=== PATIENT | female | born 1940 | race Caucasian/White ===

== ENCOUNTER 2017-10-11 15:31 | Emergency (ER) | payer OTHER ==
[~2017-10-11] VITALS: Ht 154.9 cm; Wt 57.7 kg
[2017-10-11 15:50] VITALS: BP 119/61
== END 2017-10-11 16:53 | disposition left against medical advice (07) ==
LOC: ER 15:31
DX: M54.5 Low back pain (principal); Z53.21 Procedure and treatment not carried out due to patient leaving prior to being seen by health care provider

== ENCOUNTER 2019-01-13 11:27 | Emergency (ER) | payer MEDICARE, BC ==
[~2019-01-13] VITALS: Ht 154.9 cm; Wt 58.0 kg
[2019-01-13 12:21] LABS: BASOPHILS % (AUTO) 0.7 % (0-1); EOSINOPHILS # (AUTO) 0.2 X10'3 (0-0.9); EOSINOPHILS % (AUTO) 2.4 % (0-6); HEMATOCRIT 44.4 % (35.0-45.0); HEMOGLOBIN 15.2 g/dl (12.0-16.0); LYMPHOCYTES # (AUTO) 1.8 X10'3 (1.1-4.8); LYMPHOCYTES % (AUTO) 28.5 % (21-51); MEAN CORPUSCULAR HEMOGLOBIN 35.4 PG (27.0-31.0); MEAN CORPUSCULAR HGB CONC 34.2 g/dL (33.0-36.5); MEAN CORPUSCULAR VOLUME 103.5 FL (78-98); MEAN PLATELET VOLUME 6.8 FL (7.4-10.4); MONOCYTES # (AUTO) 0.4 X10'3 (0-0.9); MONOCYTES % (AUTO) 7.1 % (2-12); NEUTROPHILS # (AUTO) 3.9 X10'3 (1.8-7.7); NEUTROPHILS % (AUTO) 61.3 % (42-75); PLATELET COUNT 221 X10'3 (140-440); RED BLOOD COUNT 4.29 X10'6 (4.20-5.60); RED CELL DISTRIBUTION WIDTH 13.9 % (11.5-14.5); WHITE BLOOD COUNT 6.3 X10'3 (4.5-11.0)
[2019-01-13 12:36] LABS: ALANINE AMINOTRANSFERASE 28 U/L (12-78); ALBUMIN/GLOBULIN RATIO 1.2 (1.1-1.5); ALKALINE PHOSPHATASE 87 IU/L (46-116); ANION GAP 6 (8-16); ASPARTATE AMINO TRANSFERASE 25 U/L (10-37); BILIRUBIN,TOTAL 0.3 MG/DL (0.1-1.0); BLOOD UREA NITROGEN 16 MG/DL (7-18); BUN/CREATININE RATIO 19.5 (6.6-38.0); CALCIUM 9.1 MG/DL (8.5-10.1); CHLORIDE 101 MMOL/L (99-107); CREATININE 0.82 MG/DL (0.40-0.90); GLUCOSE 86 MG/DL (70-104); POTASSIUM 4.2 MMOL/L (3.5-5.1); SODIUM 138 MMOL/L (135-145); TOTAL CARBON DIOXIDE 30.8 MMOL/L (24-32); TOTAL PROTEIN 7.4 G/DL (6.4-8.2); eGFR 67 ML/MIN
[2019-01-13 12:48] LABS: MAGNESIUM 2.2 MG/DL (1.5-2.4)
[2019-01-13 15:28] VITALS: BP 211/87
== END 2019-01-13 15:33 | disposition home or self-care (01) ==
LOC: ER 11:28
DX: F41.9 Anxiety disorder, unspecified (principal); R94.6 Abnormal results of thyroid function studies; R42 Dizziness and giddiness; R06.02 Shortness of breath; E07.9 Disorder of thyroid, unspecified
CPT/HCPCS: 36415; 71045; 80053; 83735; 83880; 84439; 84443; 84484; 85025; 93005; 99284

== ENCOUNTER 2022-01-06 03:32 | Inpatient (IN) | payer MEDICARE, BC ==
[2022-01-06] VITALS (7 sets, daily range): BP systolic 138–156; BP diastolic 56–90
[~2022-01-06] VITALS: Ht 154.9 cm; Wt 56.8 kg
[2022-01-06] MEDS ORDERED: normal saline 1000ml 1,000 ML IV SCH (03:55)
[2022-01-06 04:37] LABS: BASOPHILS # (AUTO) 0.1 X10'3 (0-0.2); BASOPHILS % (AUTO) 1.1 % (0-1); EOSINOPHILS # (AUTO) 0.3 X10'3 (0-0.9); EOSINOPHILS % (AUTO) 3.7 % (0-6); HEMOGLOBIN 7.5 g/dl (12.0-16.0); LYMPHOCYTES # (AUTO) 1.8 X10'3 (1.1-4.8); LYMPHOCYTES % (AUTO) 22.9 % (21-51); MEAN CORPUSCULAR HGB CONC 34.5 g/dL (33.0-36.5); MEAN CORPUSCULAR VOLUME 95.7 FL (78-98); MEAN PLATELET VOLUME 5.8 FL (7.4-10.4); MONOCYTES # (AUTO) 0.7 X10'3 (0-0.9); MONOCYTES % (AUTO) 8.9 % (2-12); NEUTROPHILS # (AUTO) 4.9 X10'3 (1.8-7.7); NEUTROPHILS % (AUTO) 63.4 % (42-75); PLATELET COUNT 330 X10'3 (140-440); RED BLOOD COUNT 2.26 X10'6 (4.20-5.60); RED CELL DISTRIBUTION WIDTH 14.3 % (11.5-14.5); WHITE BLOOD COUNT 7.7 X10'3 (4.5-11.0)
[2022-01-06 04:43] LABS: HEMATOCRIT 21.6 % (35.0-45.0)
[2022-01-06 04:59] LABS: ALANINE AMINOTRANSFERASE 25 U/L (12-78); ALBUMIN 2.9 G/DL (3.4-5.0); ALBUMIN/GLOBULIN RATIO 0.9 (1.1-1.5); ALKALINE PHOSPHATASE 90 IU/L (46-116); ANION GAP 6 (8-16); ASPARTATE AMINO TRANSFERASE 19 U/L (10-37); BLOOD UREA NITROGEN 30 MG/DL (7-18); BUN/CREATININE RATIO 38.5 (6.6-38.0); CALCIUM 8.5 MG/DL (8.5-10.1); CHLORIDE 104 MMOL/L (99-107); CREATININE 0.78 MG/DL (0.40-0.90); GLUCOSE 110 MG/DL (70-104); SODIUM 139 MMOL/L (135-145); TOTAL CARBON DIOXIDE 29.2 MMOL/L (24-32); eGFR 71 ML/MIN
[2022-01-06 05:08] LABS: BILIRUBIN,TOTAL 0.1 MG/DL (0.1-1.0); LIPASE 323 U/L (73-393)
[2022-01-06 05:11] LABS: CLARITY,URINE CLEAR (Clear); COLOR,URINE YELLOW (Yellow); GLUCOSE, URINE NEGATIVE (Neg); KETONES,URINE NEGATIVE (Neg); LEUKOCYTE ESTERASE ,URINE SMALL (Neg); NITRITES, URINE NEGATIVE (Neg); OCCULT BLOOD,URINE NEGATIVE (Neg); PROTEIN,URINE NEGATIVE (Neg); UROBILINOGEN,URINE 0.2 E.U/dL (0.2-1.0)
[2022-01-06 05:16] LABS: UA COLLECTION TYPE CLN CATCH MIDSTREAM
[2022-01-06 05:18] LABS: RBC,URINE NONE SEEN /HPF (0-2)
[2022-01-06 05:19] LABS: BACTERIA,URINE NONE SEEN /HPF (Neg); MUCUS STRANDS NONE SEEN /LPF (Neg); RENAL CELLS, URINE FEW /HPF; SQUAMOUS EPITHELIAL CELL,UR FEW /LPF (FEW); WBC CLUMPS,URINE FEW /HPF (NEGATIVE)
--- NOTE | 2022-01-06 05:47 | NUR ---
MOST HX RECALLED PT POOR HISTORIAN
--- NOTE | 2022-01-06 06:45 | NUR ---
Up to void, steady gait.
[2022-01-06] MEDS ORDERED: AMLO2.5T2 PO (06:58)
[2022-01-06] MEDS ORDERED: levothyroxine PO (06:58)
[2022-01-06] MEDS ORDERED: [UNRECOGNIZED DRUG - OTHER] PO (06:58)
[2022-01-06] MEDS ORDERED: HYDROcodone/acetaminophen 5mg/325mg tablet PO PRN (10:05)
[2022-01-06] MEDS ORDERED: magnesium hydroxide 30ml (MOM) UD suspension PO PRN (10:05)
[2022-01-06] MEDS ORDERED: acetaminophen 325mg tablet PO PRN ×2 (10:05)
[2022-01-06] MEDS ORDERED: magnesium 2GM in 50ml NS 50 ML IV PRN (10:05)
[2022-01-06] MEDS ORDERED: magnesium 4gm in 100ml NS 100 ML IV PRN (10:05)
[2022-01-06] MEDS ORDERED: potassium CL 10mEq/100ml bag 100 ML IV PRN (10:05)
[2022-01-06] MEDS ORDERED: morphine 2 MG/ML inj. syringe IV PRN ×2 (10:05)
[2022-01-06] MEDS ORDERED: acetaminophen 650mg rectal suppository RC PRN (10:05)
[2022-01-06] MEDS ORDERED: HYDROcodone/acetaminophen 10/325mg tab PO PRN (10:05)
[2022-01-06] MEDS ORDERED: PERFLUTREN PROTEIN-A MICROSPHR (Optison) 0.22 MG/ML 3ML VIAL IV ONE (10:05)
[2022-01-06] MEDS ORDERED: bisacodyl 10mg suppository rectal RC PRN (10:05)
[2022-01-06] MEDS ORDERED: mag hydrox/Alum hydrox/simeth 30ml oral suspension PO PRN (10:05)
[2022-01-06] MEDS ORDERED: POTASSIUM BICARB 20meq eff tab 20 MEQ TABLET.EFF PO PRN ×2 (10:05)
[2022-01-06] MEDS ORDERED: magnesium Cl slow-release 64mg tablet PO PRN (10:05)
[2022-01-06] MEDS: pantoprazole 40MG/NS 100ML BAG 100 ML IV SCH ×2 (10:05→21:25)
[2022-01-06] MEDS ORDERED: ondansetron/PF 4mg/2ml inj IV PRN (10:05)
[2022-01-06 10:55] LABS: HEMOGLOBIN A1C 5.5 % (4.5-6.2)
[2022-01-06 10:56] LABS: HEMATOCRIT 23.5 % (35.0-45.0); HEMOGLOBIN 7.7 g/dl (12.0-16.0); MEAN CORPUSCULAR HEMOGLOBIN 31.2 PG (27.0-31.0); MEAN CORPUSCULAR HGB CONC 32.8 g/dL (33.0-36.5); MEAN CORPUSCULAR VOLUME 95.1 FL (78-98); MEAN PLATELET VOLUME 5.9 FL (7.4-10.4); PLATELET COUNT 353 X10'3 (140-440); RED BLOOD COUNT 2.48 X10'6 (4.20-5.60); RED CELL DISTRIBUTION WIDTH 14.6 % (11.5-14.5); WHITE BLOOD COUNT 5.9 X10'3 (4.5-11.0)
[2022-01-06] MEDS: normal saline 1000ml 1,000 ML IV SCH ×2 (11:09→23:25)
--- NOTE | 2022-01-06 11:17 | NUR ---
Lawson roberts in [facility] - 01/06/22 at 1127 by ROBERT Gerda: called at [phone]; pottasium 2.8.
[2022-01-06] MEDS ORDERED: LIDOcaine Viscous 15ml cup ONE (13:04)
[2022-01-06] MEDS ORDERED: MIDAZolam 1 MG/ML 5ML VIAL ONE (13:04)
[2022-01-06] MEDS ORDERED: fentaNYL/PF 50MCG/1 ML 2ML syringe ONE (13:04)
--- NOTE | 2022-01-06 13:10 | NUR ---
Transported to the GI Lab by LOLIS.
--- NOTE | 2022-01-06 14:50 | NUR ---
Pt returned from GI lab. Placed on a hospital bed. Restarted IVF. Awake and alert. Denies pain. Ambulated to the commode to void.
--- NOTE | 2022-01-06 15:02 | NUR ---
Paged Dr. Gbison regarding pt's diet.
[2022-01-06] MEDS ORDERED: ALBU17AE26 IH (15:26)
[2022-01-06] MEDS ORDERED: LEVO125T8 PO (15:26)
[2022-01-06] MEDS ORDERED: AMLO10TA13 PO (15:26)
[2022-01-06 16:41] LABS: HEMATOCRIT 22.9 % (35.0-45.0); HEMOGLOBIN 7.6 g/dl (12.0-16.0); MEAN CORPUSCULAR HEMOGLOBIN 31.7 PG (27.0-31.0); MEAN CORPUSCULAR HGB CONC 33.2 g/dL (33.0-36.5); MEAN CORPUSCULAR VOLUME 95.3 FL (78-98); MEAN PLATELET VOLUME 5.8 FL (7.4-10.4); PLATELET COUNT 350 X10'3 (140-440); RED BLOOD COUNT 2.41 X10'6 (4.20-5.60); RED CELL DISTRIBUTION WIDTH 14.5 % (11.5-14.5); WHITE BLOOD COUNT 6.7 X10'3 (4.5-11.0)
--- NOTE | 2022-01-06 17:07 | NUR ---
Report given to LOLIS Quan in PCU.
[2022-01-06] MEDS: K and/or MAG REPLACEMENT MC SCH (20:00)
[2022-01-06] MEDS: docusate sod 100mg capsule PO SCH (21:25)
[2022-01-06] MEDS ORDERED: amLODIPine 5mg tablet PO ONE (22:15)
[2022-01-06] MEDS ORDERED: CefTRIAXone/D5W-Rocephin 1gm 50 ML IV SCH ×2 (22:15→22:16)
[2022-01-06] MEDS ORDERED: albuterol 2.5 MG/3 ML nebule NEB PRN (22:20)
[2022-01-07 02:00] VITALS: BP 154/74
[2022-01-07 06:00] VITALS: BP 123/51
[2022-01-07 07:24] LABS: BASOPHILS # (AUTO) 0.1 X10'3 (0-0.2); BASOPHILS % (AUTO) 0.8 % (0-1); EOSINOPHILS # (AUTO) 0.3 X10'3 (0-0.9); EOSINOPHILS % (AUTO) 3.6 % (0-6); HEMATOCRIT 25.1 % (35.0-45.0); HEMOGLOBIN 8.1 g/dl (12.0-16.0); LYMPHOCYTES % (AUTO) 13.6 % (21-51); MEAN CORPUSCULAR HEMOGLOBIN 30.8 PG (27.0-31.0); MEAN CORPUSCULAR HGB CONC 32.4 g/dL (33.0-36.5); MEAN CORPUSCULAR VOLUME 95.1 FL (78-98); MEAN PLATELET VOLUME 5.9 FL (7.4-10.4); MONOCYTES # (AUTO) 0.5 X10'3 (0-0.9); MONOCYTES % (AUTO) 7.4 % (2-12); NEUTROPHILS # (AUTO) 5.4 X10'3 (1.8-7.7); NEUTROPHILS % (AUTO) 74.6 % (42-75); PLATELET COUNT 380 X10'3 (140-440); RED BLOOD COUNT 2.64 X10'6 (4.20-5.60); RED CELL DISTRIBUTION WIDTH 14.6 % (11.5-14.5); WHITE BLOOD COUNT 7.3 X10'3 (4.5-11.0)
[2022-01-07] MEDS: docusate sod 100mg capsule PO SCH ×2 (07:44→19:51)
[2022-01-07] MEDS: amLODIPine 5mg tablet PO SCH (07:45)
[2022-01-07] MEDS: thiamine 100mg tablet PO SCH ×2 (07:45→19:51)
[2022-01-07] MEDS: levoTHYROXINE 125mcg tablet PO SCH (07:45)
[2022-01-07] MEDS: folic acid 1mg tablet PO SCH (07:46)
[2022-01-07] MEDS: multivitamins, therapeutics tablet PO SCH (07:46)
[2022-01-07 07:53] LABS: ALANINE AMINOTRANSFERASE 22 U/L (12-78); ALBUMIN 3.1 G/DL (3.4-5.0); ALKALINE PHOSPHATASE 76 IU/L (46-116); ANION GAP 6 (8-16); ASPARTATE AMINO TRANSFERASE 19 U/L (10-37); BILIRUBIN,TOTAL 0.2 MG/DL (0.1-1.0); BLOOD UREA NITROGEN 11 MG/DL (7-18); BUN/CREATININE RATIO 18.3 (6.6-38.0); CALCIUM 8.4 MG/DL (8.5-10.1); CHLORIDE 106 MMOL/L (99-107); CHOL/HDL RATIO 1.9 (0.00-4.99); CHOLESTEROL 135 MG/DL (0-200); GLUCOSE 114 MG/DL (70-104); HDL CHOLESTEROL 72 MG/DL (35-60); LDL CHOLESTEROL 51 MG/DL (50-100); PHOSPHORUS 2.8 MG/DL (2.3-4.5); POTASSIUM 3.9 MMOL/L (3.5-5.1); SODIUM 141 MMOL/L (135-145); TOTAL CARBON DIOXIDE 29.1 MMOL/L (24-32); TOTAL PROTEIN 6.2 G/DL (6.4-8.2); TRIGLYCERIDES 71 MG/DL (20-135); eGFR > 90 ML/MIN
[2022-01-07] MEDS: K and/or MAG REPLACEMENT MC SCH ×2 (08:00→19:39)
[2022-01-07] MEDS ORDERED: [UNRECOGNIZED DRUG - OTHER] PO SCH (08:00)
[2022-01-07] MEDS: pantoprazole 40MG/NS 100ML BAG 100 ML IV SCH (08:00)
[2022-01-07 11:00] VITALS: BP 125/56
[2022-01-07] MEDS: normal saline 1000ml 1,000 ML IV SCH (11:20)
[2022-01-07 15:00] VITALS: BP 131/47
[2022-01-07 18:00] VITALS: BP 94/49
--- NOTE | 2022-01-07 18:25 | NUR ---
Problems reprioritized. Patient report given, questions answered & plan of care reviewed with Alma DANIELLE.
[2022-01-07] MEDS: pantoprazole 40mg Tablet.DR PO SCH (19:51)
[2022-01-08 02:00] VITALS: BP 131/46
[2022-01-08] MEDS: normal saline 1000ml 1,000 ML IV SCH (02:05)
[2022-01-08 05:52] LABS: BASOPHILS # (AUTO) 0.1 X10'3 (0-0.2); BASOPHILS % (AUTO) 0.9 % (0-1); EOSINOPHILS # (AUTO) 0.2 X10'3 (0-0.9); HEMATOCRIT 23.3 % (35.0-45.0); HEMOGLOBIN 7.6 g/dl (12.0-16.0); LYMPHOCYTES # (AUTO) 1.3 X10'3 (1.1-4.8); LYMPHOCYTES % (AUTO) 20.2 % (21-51); MEAN CORPUSCULAR HEMOGLOBIN 30.8 PG (27.0-31.0); MEAN CORPUSCULAR HGB CONC 32.8 g/dL (33.0-36.5); MEAN CORPUSCULAR VOLUME 93.8 FL (78-98); MEAN PLATELET VOLUME 5.9 FL (7.4-10.4); MONOCYTES # (AUTO) 0.6 X10'3 (0-0.9); MONOCYTES % (AUTO) 8.4 % (2-12); NEUTROPHILS # (AUTO) 4.5 X10'3 (1.8-7.7); NEUTROPHILS % (AUTO) 67.5 % (42-75); PLATELET COUNT 344 X10'3 (140-440); RED BLOOD COUNT 2.49 X10'6 (4.20-5.60); RED CELL DISTRIBUTION WIDTH 15.2 % (11.5-14.5); WHITE BLOOD COUNT 6.7 X10'3 (4.5-11.0)
[2022-01-08 06:12] LABS: ALANINE AMINOTRANSFERASE 19 U/L (12-78); ALBUMIN 2.8 G/DL (3.4-5.0); ALBUMIN/GLOBULIN RATIO 0.9 (1.1-1.5); ANION GAP 6 (8-16); ASPARTATE AMINO TRANSFERASE 18 U/L (10-37); BILIRUBIN,TOTAL 0.2 MG/DL (0.1-1.0); BLOOD UREA NITROGEN 9 MG/DL (7-18); BUN/CREATININE RATIO 14.8 (6.6-38.0); CALCIUM 8.1 MG/DL (8.5-10.1); CHLORIDE 107 MMOL/L (99-107); CREATININE 0.61 MG/DL (0.40-0.90); GLUCOSE 92 MG/DL (70-104); PHOSPHORUS 3.4 MG/DL (2.3-4.5); SODIUM 140 MMOL/L (135-145); TOTAL CARBON DIOXIDE 27.5 MMOL/L (24-32); TOTAL PROTEIN 5.8 G/DL (6.4-8.2); eGFR > 90 ML/MIN
[2022-01-08 06:22] LABS: ALKALINE PHOSPHATASE 71 IU/L (46-116)
--- NOTE | 2022-01-08 06:58 | NUR ---
Patient in room PCU 3028. I have received report from Alma DANIELLE and had the opportunity to ask questions and assume patient care.
[2022-01-08 07:00] VITALS: BP 136/51
[2022-01-08] MEDS ORDERED: FOLI0.4T6 PO (08:38)
[2022-01-08] MEDS ORDERED: LACT1CAP26 PO (08:38)
[2022-01-08] MEDS ORDERED: MULT-25 PO (08:38)
[2022-01-08] MEDS ORDERED: THIA50TA10 PO (08:38)
[2022-01-08] MEDS ORDERED: FERR325T28 PO (08:38)
[2022-01-08] MEDS ORDERED: PANT40TA54 PO (08:38)
[2022-01-08] MEDS ORDERED: ASCO500C18 PO (08:38)
[2022-01-08] MEDS ORDERED: CEFD300C3 PO (08:38)
[2022-01-08] MEDS ORDERED: MAGN400O6 PO (08:38)
[2022-01-08 08:55] VITALS: BP_SYST 136
[2022-01-08] MEDS: amLODIPine 5mg tablet PO SCH (08:55)
[2022-01-08] MEDS: pantoprazole 40mg Tablet.DR PO SCH (08:56)
[2022-01-08] MEDS: levoTHYROXINE 125mcg tablet PO SCH (08:56)
[2022-01-08] MEDS: multivitamins, therapeutics tablet PO SCH (08:56)
[2022-01-08] MEDS: docusate sod 100mg capsule PO SCH (08:56)
[2022-01-08] MEDS: folic acid 1mg tablet PO SCH (08:56)
[2022-01-08] MEDS: thiamine 100mg tablet PO SCH (08:58)
[2022-01-08 11:36] LABS: HEMATOCRIT 24.4 % (35.0-45.0); HEMOGLOBIN 8.1 g/dl (12.0-16.0); MEAN CORPUSCULAR HEMOGLOBIN 31.5 PG (27.0-31.0); MEAN CORPUSCULAR HGB CONC 33.2 g/dL (33.0-36.5); MEAN CORPUSCULAR VOLUME 94.9 FL (78-98); MEAN PLATELET VOLUME 5.8 FL (7.4-10.4); PLATELET COUNT 385 X10'3 (140-440); RED BLOOD COUNT 2.57 X10'6 (4.20-5.60)
--- NOTE | 2022-01-08 11:53 | NUR ---
Discharge instructions given with signature obtained, understanding verbalized. PIV discontinued intact, tolerated well. Condition stable per MD. Patient taken to private vehicle via w/c with personal belongings.
== END 2022-01-08 12:16 | disposition home or self-care (01) | DRG 377 ==
LOC: ER 03:32 → ED HOLD 10:06 → PCU 3S 17:40
PROVIDERS: ADMIT Family Medicine; ATTEND Family Medicine
PROC: 0DB68ZX Excision of Stomach, Via Natural or Artificial Opening Endoscopic, Diagnostic (ICD-10-PCS; principal; 2022-01-06)
DX: K25.4 Chronic or unspecified gastric ulcer with hemorrhage (principal); G93.41 Metabolic encephalopathy; N39.0 Urinary tract infection, site not specified; K29.71 Gastritis, unspecified, with bleeding; Z60.2 Problems related to living alone; Z20.822 Contact with and (suspected) exposure to COVID-19; R55 Syncope and collapse; K44.9 Diaphragmatic hernia without obstruction or gangrene; E03.9 Hypothyroidism, unspecified; F17.210 Nicotine dependence, cigarettes, uncomplicated; I10 Essential (primary) hypertension; J45.909 Unspecified asthma, uncomplicated; K21.00 Gastro-esophageal reflux disease with esophagitis, without bleeding; Z79.890 Hormone replacement therapy; Z71.6 Tobacco abuse counseling; Z72.89 Other problems related to lifestyle; D50.0 Iron deficiency anemia secondary to blood loss (chronic)
CPT/HCPCS: 36415; 43239; 70450; 71045; 80053; 80061; 81001; 82607; 83036; 83605; 83690; 83735; 83880; 84100; 84443; 84484; 85025; 85027; 86885; 86900; 86901; 86920; 87081; 87088; 87811; 88305; 88342; 93005; 93306; 96360; 97161; 97530; 99152; 99285; A4620; A6258; C9113; G0378; J0696; J2250; J3010; J7030

== ENCOUNTER 2022-07-28 18:56 | Emergency (ER) | payer MEDICARE, BC ==
[~2022-07-28 18:56] MED LIST: ALBU17AE26 IH; AMLO10TA13 PO; ASCO500C18 PO; LACT1CAP26 PO; LEVO125T8 PO; MAGN400O6 PO; MULT-25 PO; PANT40TA54 PO; THIA50TA10 PO; [UNRECOGNIZED DRUG - OTHER] PO
[2022-07-28 19:24] LABS: BASOPHILS # (AUTO) 0.1 X10'3 (0-0.2); BASOPHILS % (AUTO) 1.1 % (0-1); EOSINOPHILS # (AUTO) 0.5 X10'3 (0-0.9); EOSINOPHILS % (AUTO) 8.2 % (0-6); HEMATOCRIT 30.5 % (35.0-45.0); HEMOGLOBIN 9.8 g/dl (12.0-16.0); LYMPHOCYTES # (AUTO) 2.1 X10'3 (1.1-4.8); LYMPHOCYTES % (AUTO) 34.2 % (21-51); MEAN CORPUSCULAR HEMOGLOBIN 27.2 PG (27.0-31.0); MEAN PLATELET VOLUME 6.1 FL (7.4-10.4); MONOCYTES # (AUTO) 0.7 X10'3 (0-0.9); MONOCYTES % (AUTO) 11.9 % (2-12); NEUTROPHILS # (AUTO) 2.7 X10'3 (1.8-7.7); NEUTROPHILS % (AUTO) 44.6 % (42-75); PLATELET COUNT 204 X10'3 (140-440); RED BLOOD COUNT 3.59 X10'6 (4.20-5.60); RED CELL DISTRIBUTION WIDTH 15.7 % (11.5-14.5); WHITE BLOOD COUNT 6.1 X10'3 (4.5-11.0)
[2022-07-28 19:40] LABS: ALANINE AMINOTRANSFERASE 17 U/L (12-78); ALBUMIN 3.4 G/DL (3.4-5.0); ALBUMIN/GLOBULIN RATIO 1.1 (1.1-1.5); ALKALINE PHOSPHATASE 84 IU/L (46-116); ANION GAP 9 (8-16); ASPARTATE AMINO TRANSFERASE 13 U/L (10-37); BLOOD UREA NITROGEN 23 MG/DL (7-18); BUN/CREATININE RATIO 27.4 (10.0-20.0); CALCIUM 8.9 MG/DL (8.5-10.1); CHLORIDE 106 MMOL/L (99-107); CREATININE 0.84 MG/DL (0.40-0.90); GLUCOSE 95 MG/DL (70-104); POTASSIUM 4.1 MMOL/L (3.5-5.1); SODIUM 143 MMOL/L (135-145); TOTAL PROTEIN 6.6 G/DL (6.4-8.2); eGFR 65 ML/MIN
[2022-07-28 19:51] LABS: BILIRUBIN,TOTAL 0.1 MG/DL (0.1-1.0)
[2022-07-28 20:45] VITALS: BP 139/57
== END 2022-07-28 21:10 | disposition home or self-care (01) ==
LOC: ER 18:56
DX: R53.1 Weakness (principal); E03.9 Hypothyroidism, unspecified; Z79.899 Other long term (current) drug therapy
CPT/HCPCS: 36415; 71045; 80053; 83880; 84484; 85025; 93005; 99285

== ENCOUNTER 2024-02-25 18:31 | Inpatient (IN) | payer MEDICARE, BC ==
[~2024-02-25] VITALS: Ht 154.9 cm; Wt 50.0 kg
[2024-02-25] MEDS: ipratropium/albuterol 3ml nebule NEB ONE (19:04)
[2024-02-25 19:05] VITALS: PULSE 61; PULSE 65; RESP 11; RESP 12; O2SAT 94; O2SAT 98
[2024-02-25 19:11] LABS: BASOPHILS # (AUTO) 0.1 X10'3 (0-0.2); BASOPHILS % (AUTO) 1.3 % (0-1); EOSINOPHILS # (AUTO) 0.1 X10'3 (0-0.9); EOSINOPHILS % (AUTO) 2.8 % (0-6); HEMATOCRIT 36.4 % (35.0-45.0); HEMOGLOBIN 12.4 g/dl (12.0-16.0); LYMPHOCYTES # (AUTO) 1.2 X10'3 (1.1-4.8); LYMPHOCYTES % (AUTO) 27.1 % (21-51); MEAN CORPUSCULAR HEMOGLOBIN 33.7 PG (27.0-31.0); MEAN PLATELET VOLUME 6.7 FL (7.4-10.4); MONOCYTES # (AUTO) 0.6 X10'3 (0-0.9); MONOCYTES % (AUTO) 13.9 % (2-12); NEUTROPHILS # (AUTO) 2.5 X10'3 (1.8-7.7); NEUTROPHILS % (AUTO) 54.9 % (42-75); PLATELET COUNT 166 X10'3 (140-440); RED BLOOD COUNT 3.68 X10'6 (4.20-5.60); RED CELL DISTRIBUTION WIDTH 13.2 % (11.5-14.5); WHITE BLOOD COUNT 4.5 X10'3 (4.5-11.0)
[2024-02-25 19:20] LABS: APTT 29 SECONDS (22-32); INR 1.1 INR; PROTHROMBIN TIME 11.6 SECONDS (9.0-12.0)
[2024-02-25] MEDS: methylPREDNISolone sod succ 125mg/2ml vial IV ONE (19:24)
[2024-02-25] MEDS: normal saline 1000ML IV soln IVB ONE (19:24)
[2024-02-25 19:30] LABS: ALBUMIN 3.7 G/DL (3.4-5.0); ANION GAP 5 (8-16); BLOOD UREA NITROGEN 20 MG/DL (7-18); BUN/CREATININE RATIO 21.3 (10.0-20.0); CALCIUM 8.6 MG/DL (8.5-10.1); CHLORIDE 100 MMOL/L (99-107); CREATININE 0.94 MG/DL (0.40-0.90); GLUCOSE 125 MG/DL (70-104); POTASSIUM 3.8 MMOL/L (3.5-5.1); PRO BRAIN NATRIURETIC PEPTIDE 355 PG/ML (0-450); SODIUM 135 MMOL/L (135-145); TOTAL CARBON DIOXIDE 30.5 MMOL/L (24-32); eCRCL 33 ML/MIN; eGFR 57 ML/MIN
[2024-02-25 20:09] LABS: ALANINE AMINOTRANSFERASE 17 U/L (12-78); ALBUMIN/GLOBULIN RATIO 1.3 (1.1-1.5); ALKALINE PHOSPHATASE 68 IU/L (46-116); ASPARTATE AMINO TRANSFERASE 18 U/L (10-37); BILIRUBIN,DIRECT 0.1 MG/DL (0-0.3); BILIRUBIN,TOTAL 0.3 MG/DL (0.1-1.0); TOTAL PROTEIN 6.6 G/DL (6.4-8.2)
[2024-02-25 22:00] LABS: BILIRUBIN,URINE NEGATIVE (Neg); CLARITY,URINE CLEAR (Clear); COLOR,URINE YELLOW (Yellow); GLUCOSE, URINE NEGATIVE (Neg); KETONES,URINE NEGATIVE (Neg); LEUKOCYTE ESTERASE ,URINE TRACE (Neg); NITRITES, URINE NEGATIVE (Neg); OCCULT BLOOD,URINE TRACE-INTACT (Neg); PROTEIN,URINE TRACE mg/dl (Neg); UROBILINOGEN,URINE 0.2 E.U/dL (0.2-1.0)
[2024-02-25 22:05] LABS: UA COLLECTION TYPE URINAL
[2024-02-25 22:06] LABS: BACTERIA,URINE 1+ /HPF (Neg); SQUAMOUS EPITHELIAL CELL,UR FEW /LPF (FEW)
[2024-02-25] MEDS ORDERED: mag hydrox/Alum hydrox/simeth 30ml oral suspension PO PRN (22:50)
[2024-02-25] MEDS ORDERED: acetaminophen 325mg tablet PO PRN (22:50)
[2024-02-25] MEDS ORDERED: magnesium sulf-water 2g/50mL 50 ML IV PRN (22:50)
[2024-02-25] MEDS ORDERED: magnesium sulf-water 4G/100mL 100 ML IV PRN (22:50)
[2024-02-25] MEDS ORDERED: magnesium hydroxide 30ml (MOM) UD suspension PO PRN (22:50)
[2024-02-25] MEDS ORDERED: magnesium Cl slow-release 64mg tablet PO PRN (22:50)
[2024-02-25] MEDS ORDERED: potassium Cl 40MEQ/1/2NS 520ml 520 ML IV PRN (22:50)
[2024-02-25] MEDS ORDERED: ondansetron/PF 4mg/2ml inj IV PRN (22:50)
[2024-02-25] MEDS ORDERED: potassium Cl 20 mEq SR tablet PO PRN ×2 (22:50)
[2024-02-25 23:07] LABS: HEMOGLOBIN A1C 5.4 % (4.5-6.2)
[2024-02-26] MEDS: normal saline 1000ml 1,000 ML IV SCH (00:31)
[2024-02-26] MEDS: CefTRIAXone/D5W-Rocephin 1gm 50 ML IV SCH (00:32)
[2024-02-26] MEDS ORDERED: albuterol 2.5 MG/3 ML nebule NEB PRN ×2 (02:20→07:55)
[2024-02-26] MEDS: K and/or MAG REPLACEMENT MC SCH (06:51)
[2024-02-26] MEDS: docusate sod 100mg capsule PO SCH (07:40)
[2024-02-26] MEDS: enoxaparin 40mg/0.4ml syringe SUBCUT SCH (07:43)
[2024-02-26] MEDS: guaiFENesin ER 600mg tablet PO SCH (07:48)
[2024-02-26] MEDS ORDERED: PANT-47 PO (07:51)
[2024-02-26] MEDS ORDERED: QUET25TA36 PO (07:52)
[2024-02-26] MEDS ORDERED: ESCI20TA39 PO (07:53)
[2024-02-26] MEDS ORDERED: ALEN70TA60 PO (07:54)
[2024-02-26] MEDS ORDERED: ipratropium/albuterol 3ml nebule NEB PRN (07:55)
[2024-02-26 08:28] LABS: BASOPHILS % (AUTO) 0.6 % (0-1); EOSINOPHILS % (AUTO) 0 % (0-6); HEMATOCRIT 40.9 % (35.0-45.0); HEMOGLOBIN 13.7 g/dl (12.0-16.0); LYMPHOCYTES # (AUTO) 0.6 X10'3 (1.1-4.8); LYMPHOCYTES % (AUTO) 12.7 % (21-51); MEAN CORPUSCULAR HGB CONC 33.4 g/dL (33.0-36.5); MEAN CORPUSCULAR VOLUME 98.9 FL (78-98); MEAN PLATELET VOLUME 6.8 FL (7.4-10.4); MONOCYTES # (AUTO) 0.3 X10'3 (0-0.9); MONOCYTES % (AUTO) 5.2 % (2-12); NEUTROPHILS # (AUTO) 4.1 X10'3 (1.8-7.7); NEUTROPHILS % (AUTO) 81.5 % (42-75); PLATELET COUNT 171 X10'3 (140-440); RED BLOOD COUNT 4.13 X10'6 (4.20-5.60); RED CELL DISTRIBUTION WIDTH 13.3 % (11.5-14.5)
[2024-02-26 09:33] LABS: ALANINE AMINOTRANSFERASE 16 U/L (12-78); ALBUMIN 3.2 G/DL (3.4-5.0); ALKALINE PHOSPHATASE 61 IU/L (46-116); ANION GAP 7 (8-16); ASPARTATE AMINO TRANSFERASE 20 U/L (10-37); BILIRUBIN,TOTAL 0.2 MG/DL (0.1-1.0); BLOOD UREA NITROGEN 19 MG/DL (7-18); BUN/CREATININE RATIO 23.8 (10.0-20.0); CALCIUM 8.2 MG/DL (8.5-10.1); CHLORIDE 106 MMOL/L (99-107); CHOL/HDL RATIO 2.4 (0.00-4.99); CHOLESTEROL 167 MG/DL (0-200); GLUCOSE 137 MG/DL (70-104); HDL CHOLESTEROL 71 MG/DL (35-60); LDL CHOLESTEROL 90 MG/DL (50-100); MAGNESIUM 1.9 MG/DL (1.5-2.4); SODIUM 140 MMOL/L (135-145); THYROID STIMULATING HORMONE 1.46 ulU/ml (0.34-4.50); TOTAL CARBON DIOXIDE 27.3 MMOL/L (24-32); TOTAL PROTEIN 6.5 G/DL (6.4-8.2); TRIGLYCERIDES 24 MG/DL (20-135); eCRCL 39 ML/MIN; eGFR 68 ML/MIN
[2024-02-26 10:00] LABS: POTASSIUM 4.5 MMOL/L (3.5-5.1)
[2024-02-26 11:15] VITALS: BP 114/72; PULSE 61; RESP 12; TEMP 98.2; O2SAT 95
[2024-02-26 12:12] VITALS: PULSE 60; RESP 20; O2SAT 94
[2024-02-26 18:00] VITALS: BP 173/76; PULSE 68; RESP 15; TEMP 98.2; O2SAT 94
[2024-02-26 20:00] VITALS: RESP 15; O2SAT 94
[2024-02-26] MEDS ORDERED: quetiapine 100mg tablet PO SCH (21:00)
[2024-02-26 22:00] VITALS: BP 139/87; PULSE 75; RESP 18; TEMP 98; O2SAT 93
[2024-02-26] MEDS: QUEtiapine 25mg tablet PO SCH (22:30)
[2024-02-27 03:00] VITALS: BP_SYST 136; BP_SYST 150; BP_SYST 171; BP_DIAS 55; BP_DIAS 70; BP_DIAS 74; PULSE 54; PULSE 59; PULSE 66
[2024-02-27 06:00] VITALS: BP 173/76; PULSE 68; RESP 15; TEMP 98.2; O2SAT 94
[2024-02-27 08:06] LABS: BASOPHILS % (AUTO) 0.9 % (0-1); EOSINOPHILS # (AUTO) 0.1 X10'3 (0-0.9); EOSINOPHILS % (AUTO) 2.4 % (0-6); HEMATOCRIT 39.5 % (35.0-45.0); HEMOGLOBIN 13.5 g/dl (12.0-16.0); LYMPHOCYTES % (AUTO) 37.2 % (21-51); MEAN CORPUSCULAR HEMOGLOBIN 34.1 PG (27.0-31.0); MEAN CORPUSCULAR HGB CONC 34.2 g/dL (33.0-36.5); MEAN CORPUSCULAR VOLUME 99.7 FL (78-98); MEAN PLATELET VOLUME 6.7 FL (7.4-10.4); MONOCYTES # (AUTO) 0.4 X10'3 (0-0.9); MONOCYTES % (AUTO) 8.1 % (2-12); NEUTROPHILS # (AUTO) 2.8 X10'3 (1.8-7.7); NEUTROPHILS % (AUTO) 51.4 % (42-75); PLATELET COUNT 184 X10'3 (140-440); RED BLOOD COUNT 3.96 X10'6 (4.20-5.60); RED CELL DISTRIBUTION WIDTH 13.5 % (11.5-14.5); WHITE BLOOD COUNT 5.4 X10'3 (4.5-11.0)
[2024-02-27] MEDS: levoTHYROXINE 125mcg tablet PO SCH (08:15)
[2024-02-27] MEDS: pantoprazole 40mg Tablet.DR PO SCH (08:15)
[2024-02-27 08:30] VITALS: RESP 18; O2SAT 96
[2024-02-27 08:41] LABS: ALANINE AMINOTRANSFERASE 18 U/L (12-78); ALBUMIN 3.3 G/DL (3.4-5.0); ALBUMIN/GLOBULIN RATIO 1.1 (1.1-1.5); ALKALINE PHOSPHATASE 57 IU/L (46-116); ANION GAP 3 (8-16); ASPARTATE AMINO TRANSFERASE 29 U/L (10-37); BILIRUBIN,TOTAL 0.2 MG/DL (0.1-1.0); BLOOD UREA NITROGEN 19 MG/DL (7-18); BUN/CREATININE RATIO 25.7 (10.0-20.0); CALCIUM 8.3 MG/DL (8.5-10.1); CHLORIDE 107 MMOL/L (99-107); CREATININE 0.74 MG/DL (0.40-0.90); GLUCOSE 76 MG/DL (70-104); POTASSIUM 4.1 MMOL/L (3.5-5.1); SODIUM 141 MMOL/L (135-145); TOTAL CARBON DIOXIDE 31.1 MMOL/L (24-32); TOTAL PROTEIN 6.3 G/DL (6.4-8.2); eCRCL 42 ML/MIN; eGFR 75 ML/MIN
[2024-02-27] MEDS: FLU VACC TS2024-25(6MOS UP)/PF 45 MCG/0.5 ML SYRINGE IMVAC ONE (12:19)
[2024-02-27] MEDS: nicotine 14mg patch - 24hr TD SCH (15:33)
[2024-02-27 17:22] VITALS: BP_SYST 144; BP_SYST 169; BP_SYST 189; BP_DIAS 80; BP_DIAS 83; PULSE 60; PULSE 77
[2024-02-27] MEDS: hydrALAZINE 20mg/ml inj. IV PRN (18:02)
[2024-02-27 20:00] VITALS: BP 169/80; PULSE 60; RESP 18; O2SAT 93
[2024-02-27] MEDS: amLODIPine 5mg tablet PO SCH (21:20)
[2024-02-28 06:00] VITALS: BP 153/70; PULSE 85; RESP 15; TEMP 97.6; O2SAT 94
[2024-02-28 06:40] LABS: BASOPHILS # (AUTO) 0.1 X10'3 (0-0.2); BASOPHILS % (AUTO) 0.8 % (0-1); EOSINOPHILS # (AUTO) 0.1 X10'3 (0-0.9); EOSINOPHILS % (AUTO) 1.7 % (0-6); HEMATOCRIT 39.3 % (35.0-45.0); HEMOGLOBIN 13.2 g/dl (12.0-16.0); LYMPHOCYTES # (AUTO) 1.6 X10'3 (1.1-4.8); LYMPHOCYTES % (AUTO) 21.5 % (21-51); MEAN CORPUSCULAR HEMOGLOBIN 33.1 PG (27.0-31.0); MEAN CORPUSCULAR HGB CONC 33.6 g/dL (33.0-36.5); MEAN CORPUSCULAR VOLUME 98.8 FL (78-98); MONOCYTES # (AUTO) 0.6 X10'3 (0-0.9); MONOCYTES % (AUTO) 8.5 % (2-12); NEUTROPHILS # (AUTO) 4.9 X10'3 (1.8-7.7); NEUTROPHILS % (AUTO) 67.5 % (42-75); PLATELET COUNT 194 X10'3 (140-440); RED BLOOD COUNT 3.97 X10'6 (4.20-5.60); RED CELL DISTRIBUTION WIDTH 13.3 % (11.5-14.5); WHITE BLOOD COUNT 7.3 X10'3 (4.5-11.0)
[2024-02-28 06:54] LABS: ALANINE AMINOTRANSFERASE 24 U/L (12-78); ALBUMIN 3.4 G/DL (3.4-5.0); ALBUMIN/GLOBULIN RATIO 1.1 (1.1-1.5); ALKALINE PHOSPHATASE 57 IU/L (46-116); ANION GAP 5 (8-16); ASPARTATE AMINO TRANSFERASE 34 U/L (10-37); BILIRUBIN,TOTAL 0.3 MG/DL (0.1-1.0); BLOOD UREA NITROGEN 14 MG/DL (7-18); BUN/CREATININE RATIO 20.6 (10.0-20.0); CALCIUM 8.7 MG/DL (8.5-10.1); CHLORIDE 109 MMOL/L (99-107); CREATININE 0.68 MG/DL (0.40-0.90); GLUCOSE 87 MG/DL (70-104); SODIUM 144 MMOL/L (135-145); TOTAL CARBON DIOXIDE 30.3 MMOL/L (24-32); TOTAL PROTEIN 6.6 G/DL (6.4-8.2); eCRCL 46 ML/MIN; eGFR 82 ML/MIN
[2024-02-28 07:01] LABS: POTASSIUM 3.6 MMOL/L (3.5-5.1)
[2024-02-28 08:10] VITALS: RESP 18
[2024-02-28] MEDS: fludrocortisone acetate 0.1mg tablet PO SCH (09:16)
[2024-02-28 10:30] VITALS: BP_SYST 130; BP_SYST 146; BP_SYST 149; BP_SYST 160; BP_DIAS 67; BP_DIAS 68; BP_DIAS 69; BP_DIAS 71; PULSE 72; PULSE 78; PULSE 84; PULSE 86; RESP 16; TEMP 97.6; O2SAT 94
[2024-02-28] MEDS ORDERED: FLO0.1T PO (10:58)
== END 2024-02-28 13:35 | disposition home or self-care (01) | DRG 689 ==
LOC: ER 18:31 → ED HOLD 22:16 → ORTHO 4S 02-26 11:19
PROVIDERS: ADMIT Student in an Organized Health Care Education/Training Program; ATTEND Family Medicine
DX: N30.00 Acute cystitis without hematuria (principal); G93.41 Metabolic encephalopathy; I95.1 Orthostatic hypotension; Z20.822 Contact with and (suspected) exposure to COVID-19; F17.210 Nicotine dependence, cigarettes, uncomplicated; I10 Essential (primary) hypertension; F03.90 Unspecified dementia, unspecified severity, without behavioral disturbance, psychotic disturbance, mood disturbance, and anxiety; E03.9 Hypothyroidism, unspecified; J44.9 Chronic obstructive pulmonary disease, unspecified; Z79.83 Long term (current) use of bisphosphonates; Z79.899 Other long term (current) drug therapy; Z82.49 Family history of ischemic heart disease and other diseases of the circulatory system
CPT/HCPCS: 36415; 71045; 80048; 80053; 80061; 80076; 81001; 83036; 83605; 83735; 83880; 84145; 84443; 84484; 85025; 85610; 85730; 87040; 87081; 87088; 87502; 87503; 87811; 90686; 92508; 92616; 93005; 94640; 94760; 96374; 97110; 97116; 97162; 99285; A4615; G0378; J0360; J0696; J1650; J2919; J7030

== ENCOUNTER 2024-04-09 11:54 | Emergency (ER) | payer MEDICARE, BC ==
[~2024-04-09] VITALS: Ht 154.9 cm; Wt 52.3 kg
[~2024-04-09 11:54] MED LIST changes: +ALEN70TA60 PO; +ESCI20TA39 PO; +FLO0.1T PO; +PANT-47 PO; +QUET25TA36 PO
[2024-04-09 13:30] LABS: BASOPHILS # (AUTO) 0.1 X10'3 (0-0.2); BASOPHILS % (AUTO) 1.2 % (0-1); EOSINOPHILS # (AUTO) 0.7 X10'3 (0-0.9); HEMATOCRIT 37.4 % (35.0-45.0); HEMOGLOBIN 12.9 g/dl (12.0-16.0); LYMPHOCYTES # (AUTO) 1.4 X10'3 (1.1-4.8); LYMPHOCYTES % (AUTO) 17.6 % (21-51); MEAN CORPUSCULAR HEMOGLOBIN 34.4 PG (27.0-31.0); MEAN CORPUSCULAR HGB CONC 34.4 g/dL (33.0-36.5); MEAN CORPUSCULAR VOLUME 99.9 FL (78-98); MONOCYTES # (AUTO) 0.8 X10'3 (0-0.9); MONOCYTES % (AUTO) 9.9 % (2-12); NEUTROPHILS # (AUTO) 4.8 X10'3 (1.8-7.7); NEUTROPHILS % (AUTO) 62.3 % (42-75); PLATELET COUNT 247 X10'3 (140-440); RED BLOOD COUNT 3.75 X10'6 (4.20-5.60); RED CELL DISTRIBUTION WIDTH 13.6 % (11.5-14.5); WHITE BLOOD COUNT 7.8 X10'3 (4.5-11.0)
[2024-04-09 13:33] LABS: BILIRUBIN,URINE NEGATIVE (Neg); CLARITY,URINE SLIGHTLY CLOUDY (Clear); GLUCOSE, URINE NEGATIVE (Neg); KETONES,URINE TRACE mg/dl (Neg); LEUKOCYTE ESTERASE ,URINE NEGATIVE (Neg); NITRITES, URINE NEGATIVE (Neg); OCCULT BLOOD,URINE NEGATIVE (Neg); PROTEIN,URINE 30 mg/dl (Neg)
[2024-04-09] MEDS: normal saline 1000ml 1,000 ML IV ONE ×2 (13:34→14:05)
[2024-04-09] MEDS: CefTRIAXone/D5W-Rocephin 1gm 50 ML IV ONE (13:34)
[2024-04-09 13:35] LABS: ALBUMIN 3.4 G/DL (3.4-5.0); ANION GAP 7 (8-16); BLOOD UREA NITROGEN 19 MG/DL (7-18); BUN/CREATININE RATIO 20.2 (10.0-20.0); CALCIUM 8.9 MG/DL (8.5-10.1); CHLORIDE 106 MMOL/L (99-107); CREATININE 0.94 MG/DL (0.40-0.90); GLUCOSE 115 MG/DL (70-104); POTASSIUM 3.6 MMOL/L (3.5-5.1); SODIUM 146 MMOL/L (135-145); TOTAL CARBON DIOXIDE 33.4 MMOL/L (24-32); eCRCL 33 ML/MIN; eGFR 57 ML/MIN
[2024-04-09 13:35] LABS: COLOR,URINE DARK YELLOW (Yellow); UA COLLECTION TYPE FOLEY CATH
[2024-04-09 13:40] LABS: BACTERIA,URINE FEW /HPF (Neg); FINE GRANULAR CAST 0-3 /LPF (NEGATIVE); MUCUS STRANDS MANY /LPF (Neg); RBC,URINE 0-2 /HPF (0-2); RENAL CELLS, URINE FEW /HPF; SQUAMOUS EPITHELIAL CELL,UR FEW /LPF (FEW); WBC,URINE 0-4 /HPF (0-4)
[2024-04-09 16:37] VITALS: BP 123/98; PULSE 87; RESP 16; TEMP 98.3; O2SAT 98
== END 2024-04-09 16:48 | disposition home or self-care (01) ==
LOC: ER 11:54
DX: E86.0 Dehydration (principal); F17.200 Nicotine dependence, unspecified, uncomplicated; Z79.899 Other long term (current) drug therapy
CPT/HCPCS: 36415; 71045; 80048; 81001; 83605; 83735; 84145; 85025; 87040; 93005; 96361; 96365; 99285; C1758; J0696; J7030